=== PATIENT | female | born 1960 | race American Indian/Alaskan Native ===

== ENCOUNTER 2016-12-08 09:30 | Outpatient (CLI) | payer BC ==
--- NOTE | 2016-12-08 12:57 | Mammography Report ---
LEFT DIGITAL DIAGNOSTIC MAMMOGRAM with CAD and BILATERAL BREAST ULTRASOUND: 12/08/16 09:30:00 CLINICAL: Breast cancer survivor status post bilateral mastectomy. Left TRAM reconstruction and failed right TRAM reconstruction. Bilateral breast and chest wall pain. COMPARISON:None. Her last mammogram was in 2002 prior to bilateral mastectomy. FINDINGS: The reconstructed left breast is predominantly fatty with no mass, architectural distortion or suspicious calcifications. Coarse upper-outer calcifications in a linear distribution are consistent with benign fat necrosis. Additional lower central posterior calcifications have benign morphology and are consistent with benign fat necrosis. Ultrasound of the reconstructed left breast (including all four quadrants and the retroareolar area) was performed and demonstrated no mass or suspicious shadowing. An oval benign cyst at 11 o'clock 5.5 cm from the nipple measures 4 x 4 by 3 mm. Moderate skin thickening of the reconstructed left breast the skin measuring 4 mm in maximum thickness. Ultrasound of the right chest wall demonstrated no mass or fluid collection. Ultrasound of the bilateral axillae demonstrated no suspicious lymph nodes. IMPRESSION: 1. Benign fat necrosis with benign calcifications in the reconstructed left breast. No explanation for left breast pain. 2. Negative ultrasound of the right chest wall and no explanation for right chest wall pain. BI-RADS CATEGORY: 2 - - Benign RECOMMENDATION: Clinical followup. ACR BI-RADS MAMMOGRAPHIC CODES: 0 = Needs additional imaging evaluation; 1 = Negative; 2 = Benign; 3 = Probably benign; 4 = Suspicious; 5 = Malignant; 6 = Known biopsy-proven malignancy COMMENT: 1. Dense breast tissue, i.e., adenosis, fibrocystic changes, etc., may obscure an underlying neoplasm. 2. Approximately 10% of cancers are not detected with mammography. 3. A negative mammography report should not delay biopsy if a clinically suspicious mass is present. COMMENT: Patient follow-up letters are generated by our [employer] application.
== END 2016-12-08 09:31 | disposition home or self-care (01) ==
LOC: SPVWC 09:30
PROVIDERS: ATTEND Internal Medicine Hematology & Oncology
DX: N60.02 Solitary cyst of left breast (principal); N64.1 Fat necrosis of breast; R92.1 Mammographic calcification found on diagnostic imaging of breast; Z90.11 Acquired absence of right breast and nipple; Z90.12 Acquired absence of left breast and nipple; I25.10 Atherosclerotic heart disease of native coronary artery without angina pectoris; E78.00 Pure hypercholesterolemia, unspecified; D64.9 Anemia, unspecified
CPT/HCPCS: 76641; G0206